=== PATIENT | female | born 1940 | race Caucasian/White ===

== ENCOUNTER 2019-07-08 07:59 | Emergency (ER) | payer OTHER ==
[~2019-07-08] VITALS: Ht 157.5 cm; Wt 67.6 kg
[~2019-07-08 07:59] MED LIST: CARVEDILOL25 MG; CILOSTAZOL100 MG; GABAPENTIN800 MG; HUMULIN R500 U/ML; ISOSORBIDE MONO10 MG; LANTUS100 U/ML; LASIX40 MG; LEVOTHYROXINE25 MCG; METFORMIN HCL1000 MG; MOTRIN800 MG PO; PLAVIX75 MG; QUINAPRIL HCL40 MG; SIMVASTATIN20 MG
[2019-07-08] MEDS ORDERED: BACTRIM DS TAB1 EACH PO (10:56)
== END 2019-07-08 11:07 | disposition home or self-care (01) ==
LOC: ER 07:59
DX: S30.0XXA Contusion of lower back and pelvis, initial encounter (principal); N39.0 Urinary tract infection, site not specified; W22.8XXA Striking against or struck by other objects, initial encounter; Y93.89 Activity, other specified; Y92.89 Other specified places as the place of occurrence of the external cause; Y99.8 Other external cause status

== ENCOUNTER 2019-10-09 10:48 | Outpatient (CLI) | payer OTHER ==
[~2019-10-09 10:48] MED LIST changes: +BACTRIM DS TAB1 EACH PO
== END 2019-10-09 10:55 | disposition home or self-care (01) ==
LOC: RAD 10:48
DX: H25.89 Other age-related cataract (principal); I11.9 Hypertensive heart disease without heart failure